=== PATIENT | male | born 1935 | race Caucasian/White ===

== ENCOUNTER 2019-04-03 10:39 | Emergency (ER) | payer MEDICARE, OTHER ==
[2019-04-03 11:31] LABS: BASOPHILS % (AUTO) 0.5 %; EOSINOPHILS # (AUTO) 0.2 10^3/uL (0.0-0.7); EOSINOPHILS % (AUTO) 2.9 %; LYMPHOCYTES # (AUTO) 1.7 10^3/uL (1.5-3.5); LYMPHOCYTES % (AUTO) 20.8 %; MEAN CORPUSCULAR HGB CONC 32.4 g/dL (32.0-36.0); MEAN CORPUSCULAR VOLUME 92.7 fL (80.0-94.0); MEAN PLATELET VOLUME 10.3 fL (7.4-11.4); MONOCYTES # (AUTO) 0.7 10^3/uL (0.0-1.0); MONOCYTES % (AUTO) 8.2 %; NEUTROPHILS # (AUTO) 5.4 10^3/uL (1.5-6.6); NEUTROPHILS % (AUTO) 67.2 %; PLT - PLATELET COUNT 184 10^3/uL (130-450); RED BLOOD COUNT 4.66 10^6/uL (4.70-6.10); RED CELL DISTRIBUTION WIDTH 12.8 % (12.0-15.0); WHITE BLOOD COUNT 8.1 x10^3/uL (4.8-10.8)
[2019-04-03 11:45] LABS: ALBUMIN 3.8 g/dL (3.2-5.5); ALBUMIN/GLOBULIN RATIO 1.3 (1.0-2.2); BILIRUBIN,TOTAL 2.1 mg/dL (0.2-1.0); CALCIUM 9.6 mg/dL (8.5-10.3); CREATININE 1.2 mg/dL (0.6-1.2); TOTAL PROTEIN 6.7 g/dL (6.7-8.2)
[2019-04-03] MEDS ORDERED: ALBUTEROL NEB 2.5 MG/3 ML INH STA (12:04)
--- NOTE | 2019-04-03 12:05 | XRAY Report ---
Reason: cough Procedure Date: 04/03/2019 Accession Number: [id number] / [id number] Procedure: XR - Chest 2 View X-Ray CPT Code: 56670 Final Report FULL RESULT: EXAM: CHEST RADIOGRAPHY EXAM DATE: 04/03/2019 11:36 AM. CLINICAL HISTORY: Cough, congestion, and weakness for 1 month. COMPARISON: 02/19/2016. TECHNIQUE: 2 views. FINDINGS: Lungs/Pleura: No focal opacities evident. No pleural effusion. No pneumothorax. Normal volumes. Mediastinum: The heart size is normal. Arterial calcifications indicate atherosclerosis. Other: Leads to the right chest wall pacemaker terminate in the right atrium and right ventricle. Moderate osteopenia is present. There appears to be an old healed fracture of the right inferior scapula. There is DISH of the thoracic spine. IMPRESSION: No acute findings. RADIA
--- NOTE | 2019-04-03 12:06 | ED Physician Documentation ---
PD HPI DYSPNEA - Stated complaint Stated Complaint: WEAKNESS/COLD - Chief complaint Chief Complaint: Resp - History obtained from History obtained from: Patient - History of Present Illness Timing - onset: Other (83-year-old gentleman whose had a minimally productive cough for a month. No shortness of breath or fevers. No sick contacts. He is on lisinopril but he has been on it for years. Chronic pedal edema unchanged. He was put on a Z-Krishna by his physician which was not helpful.) Review of Systems Constitutional: denies: Fever, Chills, Myalgias Cardiac: reports: Pedal edema (chronic). denies: Chest pain / pressure, Palpitations Respiratory: reports: Cough. denies: Dyspnea, Hemoptysis GI: denies: Abdominal Pain PD PAST MEDICAL HISTORY - Past Medical History Past Medical History: Yes Cardiovascular: Hypertension, High cholesterol, Arrhythmia Respiratory: Sleep apnea Endocrine/Autoimmune: None GI: GERD Musculoskeletal: Osteoarthritis Derm: None - Past Surgical History Ortho: Hip replacement Cardiovascular: Pacemaker - Present Medications Home Medications: Ambulatory Orders Medication Instructions Recorded Confirmed Albuterol Sulf [Ventolin Hfa 1 - 2 puffs INH Q4HR PRN #1 inhaler 04/03/19 Inhaler] guaiFENesin/CODEINE [Robitussin AC] 5 - 10 ml PO Q6H PRN #120 ml 04/03/19 predniSONE [Deltasone] 60 mg PO DAILY 5 Days #15 tablet 04/03/19 - Allergies Allergies/Adverse Reactions: Allergies Allergy/AdvReac Type Severity Reaction Status Date / Time Penicillins Allergy Anaphylaxis Verified 04/03/19 10:46 - Social History Does the pt smoke?: No Smoking Status: Former smoker Does the pt drink ETOH?: Yes ETOH Use: Beer Does the pt have substance abuse?: No - Immunizations Immunizations are current?: Yes PD ED PE NORMAL - Vitals Vital signs reviewed: Yes - General General: Alert and oriented X 3, No acute distress - HEENT HEENT: PERRL, Pharynx benign - Neck Neck: Supple, no meningeal sign, No bony TTP - Cardiac Cardiac: RRR, No murmur - Respiratory Respiratory: No respiratory distress, Other (Mild expiratory wheezes without focal findings) - Abdomen Abdomen: Non tender - Extremities Extremities: No calf tenderness / cord - Neuro Neuro: Alert and oriented X 3, Normal speech Results - Vitals Vitals: Vital Signs - 24 hr 04/03/19 04/03/19 04/03/19 10:46 11:08 12:45 Temperature 36.6 C 36.8 C Heart Rate 55 L 55 L 55 L Respiratory 14 18 14 Rate Blood Pressure 131/62 H 141/61 H O2 Saturation 93 98 Oxygen O2 Source Room air - Labs Labs: Laboratory Tests 04/03/19 04/03/19 04/03/19 11:20 11:20 11:20 WBC 8.1 RBC 4.66 L Hgb 14.0 Hct 43.2 MCV 92.7 MCH 30.0 MCHC 32.4 RDW 12.8 Plt Count 184 MPV 10.3 Neut # (Auto) 5.4 Lymph # (Auto) 1.7 [place] # (Auto) 0.7 Eos # (Auto) 0.2 Baso # (Auto) 0.0 Absolute Nucleated RBC 0.00 Nucleated RBC % 0.0 Sodium 138 Potassium 4.1 Chloride 103 Carbon Dioxide 29 Anion Gap 6.0 BUN 28 H Creatinine 1.2 Estimated GFR (MDRD) 58 L Glucose 109 H Lactic Acid 1.2 Calcium 9.6 Total Bilirubin 2.1 H AST 23 ALT 22 Alkaline Phosphatase 53 Total Protein 6.7 Albumin 3.8 Globulin 2.9 Albumin/Globulin Ratio 1.3 Lipase 43 - Rads (name of study) 2v chest Radiology: EMP read contemporaneously (Degenerative disease of the thoracic spine and other chronic changes without acute pulmonary findings.) PD MEDICAL DECISION MAKING - ED course ED course: 83-year-old gentleman with clinical bronchitis who has failed treatment with a Z-Krishna, chest x-ray is negative, feeling a little better after breathing treatment here. Departure - Departure Disposition: 01 Home, Self Care Clinical Impression: Viral bronchitis Condition: Good Record reviewed to determine appropriate education?: Yes Instructions: ED Bronchitis Asthmatic Prescriptions: Albuterol Sulf [Ventolin Hfa Inhaler] 1 - 2 puffs INH Q4HR PRN #1 inhaler PRN Reason: Shortness Of Air/Wheezing guaiFENesin/CODEINE [Robitussin AC] 5 - 10 ml PO Q6H PRN #120 ml PRN Reason: Cough predniSONE [Deltasone] 60 mg PO DAILY 5 Days #15 tablet Comments: Recheck with your doctor in 1 week if not better, return for new or worsening symptoms especially high fever or shortness of breath. Of note you have a mildly elevated blue bilirubin which is probably an incidental finding, but discussed this with Dr. Yajaira Tucker.
[2019-04-03 13:40] VITALS: BP 117/55
== END 2019-04-03 13:48 | disposition home or self-care (01) ==
LOC: ED 10:39
DX: J20.8 Acute bronchitis due to other specified organisms (principal); B97.89 Other viral agents as the cause of diseases classified elsewhere; R79.89 Other specified abnormal findings of blood chemistry; I10 Essential (primary) hypertension; M51.34 Other intervertebral disc degeneration, thoracic region; Z87.891 Personal history of nicotine dependence
CPT/HCPCS: 36415; 71046; 80053; 83605; 83690; 85025; 94640; 94664; 99284

== ENCOUNTER 2020-03-28 13:26 | Outpatient (CLI) | payer MEDICARE, OTHER ==
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
== END 2020-03-28 13:27 | disposition home or self-care (01) ==
LOC: DI 13:26
PROVIDERS: ATTEND Internal Medicine
DX: I70.211 Atherosclerosis of native arteries of extremities with intermittent claudication, right leg (principal)

== ENCOUNTER 2021-03-29 11:36 | Outpatient (CLI) | payer MEDICARE, OTHER ==
[2021-03-29 15:30] LABS: CALCIUM 9.5 mg/dL (8.5-10.3); CREATININE 1.5 mg/dL (0.6-1.2); POTASSIUM 4.6 mmol/L (3.5-5.0)
== END 2021-03-29 11:37 | disposition home or self-care (01) ==
LOC: LAB 11:36
PROVIDERS: ATTEND Internal Medicine Cardiovascular Disease
DX: I15.8 Other secondary hypertension (principal)
CPT/HCPCS: 36415; 80048

== ENCOUNTER 2021-04-03 13:32 | Outpatient (CLI) | payer MEDICARE, OTHER ==
[2021-04-03 13:54] LABS: CALCIUM 9.8 mg/dL (8.5-10.3); CREATININE 1.3 mg/dL (0.6-1.2); POTASSIUM 4.4 mmol/L (3.5-5.0)
== END 2021-04-03 13:33 | disposition home or self-care (01) ==
LOC: LAB 13:32
PROVIDERS: ATTEND Internal Medicine Cardiovascular Disease
DX: I44.2 Atrioventricular block, complete (principal); I10 Essential (primary) hypertension
CPT/HCPCS: 36415; 80048

== ENCOUNTER 2021-05-01 21:11 | Outpatient (CLI) | payer MEDICARE, OTHER ==
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
== END 2021-05-01 21:12 | disposition home or self-care (01) ==
LOC: DI 21:11
PROVIDERS: ATTEND Internal Medicine
DX: M79.662 Pain in left lower leg (principal)

== ENCOUNTER 2021-05-08 17:06 | Outpatient (CLI) | payer MEDICARE, OTHER | END 2021-05-08 17:07 | disposition critical access hospital (66) | LOC: EMS 17:06 | DX: R41.0 Disorientation, unspecified (principal); V58.5XXA Driver of pick-up truck or van injured in noncollision transport accident in traffic accident, initial encounter; Y92.413 State road as the place of occurrence of the external cause | CPT/HCPCS: A0425; A0429 ==

== ENCOUNTER 2021-05-08 17:23 | Emergency (ER) | payer MEDICARE, OTHER ==
[2021-05-08] MEDS ORDERED: iohexoL-300 100 ML VIAL ONE (17:39)
[2021-05-08 17:53] LABS: BASOPHILS % (AUTO) 0.7 %; EOSINOPHILS # (AUTO) 0.2 10^3/uL (0.0-0.7); HCT - HEMATOCRIT 41.9 % (42.0-52.0); HGB - HEMOGLOBIN 13.6 g/dL (14.0-18.0); LYMPHOCYTES # (AUTO) 1.2 10^3/uL (1.5-3.5); LYMPHOCYTES % (AUTO) 20.4 %; MEAN CORPUSCULAR HEMOGLOBIN 29.2 pg (27.0-31.0); MEAN CORPUSCULAR HGB CONC 32.5 g/dL (32.0-36.0); MEAN CORPUSCULAR VOLUME 90.1 fL (80.0-94.0); MONOCYTES # (AUTO) 0.4 10^3/uL (0.0-1.0); MONOCYTES % (AUTO) 7.7 %; NEUTROPHILS # (AUTO) 3.8 10^3/uL (1.5-6.6); NEUTROPHILS % (AUTO) 66.7 %; PLT - PLATELET COUNT 168 10^3/uL (130-450); RED BLOOD COUNT 4.65 10^6/uL (4.70-6.10); RED CELL DISTRIBUTION WIDTH 12.3 % (12.0-15.0); WHITE BLOOD COUNT 5.7 x10^3/uL (4.8-10.8)
[2021-05-08 18:09] LABS: ACETAMINOPHEN < 10 ug/mL (10-30); ALBUMIN 3.9 g/dL (3.2-5.5); ALBUMIN/GLOBULIN RATIO 1.3 (1.0-2.2); ALKALINE PHOSPHATASE 67 IU/L (42-121); ALT ALANINE AMINOTRANSFERASE 17 IU/L (10-60); AST ASPARTATE AMINOTRANSFERASE 25 IU/L (10-42); BILIRUBIN,TOTAL 1.5 mg/dL (0.2-1.0); BUN - BLOOD UREA NITROGEN 24 mg/dL (6-20); CALCIUM 9.5 mg/dL (8.5-10.3); CARBON DIOXIDE - CO2 26 mmol/L (21-32); CHLORIDE 106 mmol/L (101-111); CREATININE 1.5 mg/dL (0.6-1.2); ETOH - ETHANOL < 5.0 mg/dL; GFR - MDRD 44 (>89); GLUCOSE 120 mg/dL (70-100); LIPASE 34 U/L (22-51); POTASSIUM 4.1 mmol/L (3.5-5.0); SALICYLATE < 6.0 mg/dL; SODIUM 140 mmol/L (135-145); TOTAL PROTEIN 6.8 g/dL (6.7-8.2)
[2021-05-08] MEDS ORDERED: iohexoL-300 100 ML VIAL IVP ONE (18:23)
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
[2021-05-08 19:00] LABS: MUDS CUTOFF CONCENTRATIONS CUTOFF CONC BELOW:
[2021-05-08 19:02] LABS: BILIRUBIN,URINE NEGATIVE (NEGATIVE); GLUCOSE, URINE (UA) NEGATIVE (NEGATIVE); KETONES,URINE (UA) NEGATIVE (NEGATIVE); LEUKOCYTE ESTERASE, URINE NEGATIVE (NEGATIVE); NITRITE,URINE NEGATIVE (NEGATIVE); OCCULT BLOOD,URINE TRACE-INTA (NEGATIVE); PROTEIN,URINE NEGATIVE (NEGATIVE); UROBILINOGEN,URINE 0.2 (NORMAL) E.U./dL (NORMAL)
[2021-05-08 19:03] LABS: CLARITY,URINE CLEAR (CLEAR)
[2021-05-08 19:14] LABS: AMPHETAMINE SCREEN,URINE NEGATIVE (NEGATIVE); BARBITURATE SCREEN,UR NEGATIVE (NEGATIVE); BENZODIAZEPINES SCREEN, URINE NEGATIVE (NEGATIVE); COCAINE SCREEN URINE NEGATIVE (NEGATIVE); METHADONE SCREEN, URINE NEGATIVE (NEGATIVE); METHAMPHETAMINES SCREEN, URINE NEGATIVE (NEGATIVE); OPIATE SCREEN, URINE NEGATIVE (NEGATIVE); OXYCODONE SCREEN, URINE NEGATIVE (NEGATIVE); PROPOXYPHENE SCREEN, URINE NEGATIVE (NEGATIVE); THC CANNABINOID SCREEN, URINE NEGATIVE (NEGATIVE); TRICYCLIC ANTIDEPRESSANT,URINE NEGATIVE (NEGATIVE)
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
[2021-05-08 22:47] VITALS: BP 177/69
== END 2021-05-08 23:09 | disposition home or self-care (01) ==
LOC: ED 17:23
DX: S09.90XA Unspecified injury of head, initial encounter (principal); V89.2XXA Person injured in unspecified motor-vehicle accident, traffic, initial encounter; I10 Essential (primary) hypertension; Z95.0 Presence of cardiac pacemaker; Z87.891 Personal history of nicotine dependence
CPT/HCPCS: 36415; 70450; 71260; 72125; 74177; 80053; 80306; 80307; 81003; 83690; 84443; 84484; 85025; 93005; 99283; 99284; G0480; Q9967; 80320; 80329; 81001; 87086

== ENCOUNTER 2021-05-23 16:07 | Outpatient (CLI) | payer OTHER, MEDICARE ==
[2021-05-23] MEDS ORDERED: IOVERSOL 320 100 ML VIAL IVP ONE ×2 (16:45→18:54)
--- NOTE | 2021-05-24 08:26 | CT Report ---
PROCEDURE: HEAD W INDICATIONS: HEMANGIOMA OF OTHER SITES TECHNIQUE: 4.5 mm thick angled axial sections acquired from the foramen magnum to the vertex after th e administration of intravenous contrast. For radiation dose reduction, the following was used: aut omated exposure control, adjustment of mA and/or kV according to patient size. COMPARISON: May 08, 2021 FINDINGS: BRAIN PARENCHYMA: White matter hypoattenuation, most consistent with the sequela microvascular ischem ia. Interval resolution of the previously demonstrated punctate bifrontal, hyperdense foci. No acute cortical based (large territory) infarction, intracranial hemorrhage, mass or mass effect, or abnorma l fluid collection. No abnormal contrast enhancement. The density in the larger dural venous sinuses is grossly normal. VENTRICLES: Normal in size, shape, and position. BONES/SINUSES: The skull base and calvarium demonstrate no acute abnormality. The paranasal sinuses a nd mastoid air cells are well aerated. 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 IMPRESSION: 1.Interval resolution of the previous redemonstrated punctate bifrontal hemorrhages. Reviewed by: Sumeet Paez MD on 05/24/2021 8:25 AM PST Approved by: Sumeet Paez MD on 05/24/2021 8:25 AM PST Station ID: [id number]
== END 2021-05-23 16:08 | disposition home or self-care (01) ==
LOC: DI 16:07
PROVIDERS: ATTEND Internal Medicine
DX: D18.09 Hemangioma of other sites (principal)
CPT/HCPCS: 70460; Q9967

== ENCOUNTER 2021-06-05 13:09 | Outpatient (CLI) | payer MEDICARE, OTHER | END 2021-06-05 13:10 | disposition critical access hospital (66) | LOC: EMS 13:09 | DX: R41.82 Altered mental status, unspecified (principal) | CPT/HCPCS: A0425; A0429 ==

== ENCOUNTER 2021-06-05 13:22 | Emergency (ER) | payer MEDICARE, OTHER ==
[2021-06-05] MEDS ORDERED: NALOXONE 0.4 MG/ML VIAL IVP STA (13:27)
[2021-06-05 13:33] LABS: BASOPHILS % (AUTO) 0.5 %; EOSINOPHILS # (AUTO) 0.1 10^3/uL (0.0-0.7); EOSINOPHILS % (AUTO) 2.2 %; HCT - HEMATOCRIT 38.9 % (42.0-52.0); HGB - HEMOGLOBIN 12.5 g/dL (14.0-18.0); LYMPHOCYTES # (AUTO) 1.3 10^3/uL (1.5-3.5); LYMPHOCYTES % (AUTO) 20.2 %; MEAN CORPUSCULAR HEMOGLOBIN 28.7 pg (27.0-31.0); MEAN CORPUSCULAR HGB CONC 32.1 g/dL (32.0-36.0); MEAN CORPUSCULAR VOLUME 89.2 fL (80.0-94.0); MONOCYTES # (AUTO) 0.5 10^3/uL (0.0-1.0); MONOCYTES % (AUTO) 8.4 %; NEUTROPHILS # (AUTO) 4.3 10^3/uL (1.5-6.6); NEUTROPHILS % (AUTO) 68.5 %; PLT - PLATELET COUNT 166 10^3/uL (130-450); RED BLOOD COUNT 4.36 10^6/uL (4.70-6.10); RED CELL DISTRIBUTION WIDTH 12.4 % (12.0-15.0); WHITE BLOOD COUNT 6.3 x10^3/uL (4.8-10.8)
--- NOTE | 2021-06-05 13:33 | ED Physician Documentation ---
History of Present Illness - Stated complaint Stated Complaint: AMS - Chief complaint Chief Complaint: Neuro - History obtained from History obtained from: EMS - History of Present Illness Timing: Today Pain level max: 0 Pain level now: 0 - Additonal information Additional information: 86 year old male brought in by EMS for altered mental status. Per EMS the gave the patient a dose of metoprolol this morning she then found him to be less responsive. Called 911 this afternoon. No recent illness, injury. Nothing makes it better or worse. EMS states GCS was 4 upon arrival. Review of Systems Unable to obtain: Unresponsive PD PAST MEDICAL HISTORY - Past Medical History Past Medical History: Yes Cardiovascular: Hypertension, High cholesterol, Arrhythmia Respiratory: Sleep apnea Endocrine/Autoimmune: None GI: GERD Musculoskeletal: Osteoarthritis Derm: None - Past Surgical History Ortho: Hip replacement Cardiovascular: Pacemaker - Present Medications Home Medications: Ambulatory Orders Medication Instructions Recorded Confirmed Albuterol Sulf [Ventolin Hfa 1 - 2 puffs INH Q4HR PRN #1 inhaler 04/03/19 Inhaler] guaiFENesin/CODEINE [Robitussin AC] 5 - 10 ml PO Q6H PRN #120 ml 04/03/19 predniSONE [Deltasone] 60 mg PO DAILY 5 Days #15 tablet 04/03/19 - Allergies Allergies/Adverse Reactions: Allergies Allergy/AdvReac Type Severity Reaction Status Date / Time Penicillins Allergy Anaphylaxis Verified 06/05/21 13:29 - Social History Does the pt smoke?: No Smoking Status: Former smoker Does the pt drink ETOH?: Yes Does the pt have substance abuse?: No - Immunizations Immunizations are current?: Yes PD ED PE NORMAL - Vitals Vital signs reviewed: Yes - General General: No acute distress, Other (drowsy, arousable) - HEENT HEENT: Atraumatic, Moist mucous membranes, Pharynx benign, Other (Pinpoint pupils bilaterally) - Neck Neck: Supple, no meningeal sign - Cardiac Cardiac: RRR - Respiratory Respiratory: No respiratory distress, Clear bilaterally - Abdomen Abdomen: Soft, Non tender, Non distended - Derm Derm: Warm and dry - Neuro Neuro: Other (drowsy) Eye Opening: None Motor: Withdraws to Pain Verbal: Inappropriate GCS Score: 8 Results - Vitals Vitals: Vital Signs - 24 hr 06/05/21 06/05/21 06/05/21 13:29 13:34 15:16 Temperature 36.5 C 36.5 C 36.5 C Heart Rate 65 63 65 Respiratory 12 13 14 Rate Blood Pressure 165/74 H 162/82 H 138/80 H O2 Saturation 97 93 96 Oxygen O2 Source Room air - EKG (time done) 1322 Rate: Rate (enter#) (64) Rhythm: Paced - Labs Labs: Laboratory Tests 06/05/21 06/05/21 06/05/21 13:26 13:26 13:26 WBC 6.3 RBC 4.36 L Hgb 12.5 L Hct 38.9 L MCV 89.2 MCH 28.7 MCHC 32.1 RDW 12.4 Plt Count 166 MPV 11.0 Neut # (Auto) 4.3 Lymph # (Auto) 1.3 L [place] # (Auto) 0.5 Eos # (Auto) 0.1 Baso # (Auto) 0.0 Absolute Nucleated RBC 0.00 Nucleated RBC % 0.0 Sodium 136 Potassium 4.0 Chloride 102 Carbon Dioxide 26 Anion Gap 8.0 BUN 27 H Creatinine 1.3 H Estimated GFR (MDRD) 52 L Glucose 106 H Calcium 9.3 Total Bilirubin 1.7 H AST 22 ALT 22 Alkaline Phosphatase 77 Total Protein 6.3 L Albumin 3.5 Globulin 2.8 Albumin/Globulin Ratio 1.3 Lipase 35 TSH 1.23 Urine Color Urine Clarity Urine pH Ur Specific [place] Urine Protein Urine Glucose (UA) Urine Ketones Urine Occult Blood Urine Nitrite Urine Bilirubin Urine Urobilinogen Ur Leukocyte Esterase Ur Microscopic Review Urine Culture Comments Salicylates < 6.0 Urine Opiates Screen Ur Oxycodone Screen Urine Methadone Screen Ur Propoxyphene Screen Acetaminophen < 10 L Ur Barbiturates Screen Ur Tricyclics Screen Ur Phencyclidine Scrn Ur Amphetamine Screen U Methamphetamines Scrn U Benzodiazepines Scrn Urine Cocaine Screen U Cannabinoids Screen Ethyl Alcohol < 5.0 06/05/21 14:10 WBC RBC Hgb Hct MCV MCH MCHC RDW Plt Count MPV Neut # (Auto) Lymph # (Auto) [place] # (Auto) Eos # (Auto) Baso # (Auto) Absolute Nucleated RBC Nucleated RBC % Sodium Potassium Chloride Carbon Dioxide Anion Gap BUN Creatinine Estimated GFR (MDRD) Glucose Calcium Total Bilirubin AST ALT Alkaline Phosphatase Total Protein Albumin Globulin Albumin/Globulin Ratio Lipase TSH Urine Color YELLOW Urine Clarity CLEAR Urine pH 6.0 Ur Specific [place] 1.020 Urine Protein NEGATIVE Urine Glucose (UA) NEGATIVE Urine Ketones NEGATIVE Urine Occult Blood NEGATIVE Urine Nitrite NEGATIVE Urine Bilirubin NEGATIVE Urine Urobilinogen 0.2 (NORMAL) Ur Leukocyte Esterase NEGATIVE Ur Microscopic Review NOT INDICATED Urine Culture Comments NOT INDICATED Salicylates Urine Opiates Screen NEGATIVE Ur Oxycodone Screen NEGATIVE Urine Methadone Screen NEGATIVE Ur Propoxyphene Screen NEGATIVE Acetaminophen Ur Barbiturates Screen NEGATIVE Ur Tricyclics Screen NEGATIVE Ur Phencyclidine Scrn NEGATIVE Ur Amphetamine Screen NEGATIVE U Methamphetamines Scrn NEGATIVE U Benzodiazepines Scrn NEGATIVE Urine Cocaine Screen NEGATIVE U Cannabinoids Screen NEGATIVE Ethyl Alcohol - Rads (name of study) head ct Radiology: Final report received, EMP read contemporaneously, See rad report PD MEDICAL DECISION MAKING - ED course Complexity details: reviewed results, re-evaluated patient, considered differential, d/w patient, d/w family ED course: narcan given, GCS improved. still drowsy. Patient gradually returned to his normal baseline in the emergency department. Unclear etiology of his symptoms. When his arrived, she states that he has a history of obstructive sleep apnea. He does not use a CPAP. She states that he barely gets any sleep at all at night. Often will fall asleep while doing things. She reports excessive daytime sleepiness. Recommend that she follow-up with his doctor for a sleep study and CPAP. Possible that the patient is actually having parasomnia episodes and falling asleep directly into REM sleep causing the unresponsive episodes. No signs of stroke. Patient is well- appearing, nontoxic. Afebrile. No focal neurological deficits. Patient and family counseled regarding signs and symptoms for which I believe and urgent re- evaluation would be necessary. Patient with good understanding of and agreement to plan and is comfortable going home at this time This document was made in part using voice recognition software. While efforts are made to proofread this document, sound alike and grammatical errors may occur. IMPRESSION: No acute intracranial abnormality. Severe global cerebral volume loss and chronic microvascular ischemic changes similar to multiple recent prior studies. Departure - Departure Disposition: 01 Home, Self Care Clinical Impression: Decreased level of consciousness Condition: Good Instructions: ED Altered Loc Follow-Up: Yajaira Tucker MD [Primary Care Provider] - Within 1 week Comments: Follow-up with his doctor for further care. I think he should go back on a CPAP machine for his sleep apnea as this may help with these episodes that he is having. It is possible he is having a sleep disorder secondary to lack of REM sleep during his apneic periods. Discharge Date/Time: 06/05/21 15:23
[2021-06-05 13:48] LABS: ACETAMINOPHEN < 10 ug/mL (10-30); ALBUMIN 3.5 g/dL (3.2-5.5); ALBUMIN/GLOBULIN RATIO 1.3 (1.0-2.2); ALKALINE PHOSPHATASE 77 IU/L (42-121); ALT ALANINE AMINOTRANSFERASE 22 IU/L (10-60); AST ASPARTATE AMINOTRANSFERASE 22 IU/L (10-42); BILIRUBIN,TOTAL 1.7 mg/dL (0.2-1.0); CALCIUM 9.3 mg/dL (8.5-10.3); CARBON DIOXIDE - CO2 26 mmol/L (21-32); CHLORIDE 102 mmol/L (101-111); CREATININE 1.3 mg/dL (0.6-1.2); ETOH - ETHANOL < 5.0 mg/dL; GFR - MDRD 52 (>89); GLUCOSE 106 mg/dL (70-100); LIPASE 35 U/L (22-51); SALICYLATE < 6.0 mg/dL; SODIUM 136 mmol/L (135-145); TOTAL PROTEIN 6.3 g/dL (6.7-8.2)
[2021-06-05 13:57] LABS: BUN - BLOOD UREA NITROGEN 27 mg/dL (6-20)
--- NOTE | 2021-06-05 14:06 | CT Report ---
PROCEDURE: HEAD WO INDICATIONS: altered mental status TECHNIQUE: Noncontrast 4.5 mm thick angled axial sections acquired from the foramen magnum to the vertex. For r adiation dose reduction, the following was used: automated exposure control, adjustment of mA and/or kV according to patient size. COMPARISON: Multiple recent prior head CT examination FINDINGS: Image quality: Excellent. CSF spaces: Basal cisterns are patent. No extra-axial fluid collections. Ventricles are normal in size and shape. Brain: No midline shift. No intracranial masses or hemorrhage. Brock-white matter interface is norm al. Skull and face: Calvarium and visualized facial bones are intact, without suspicious lesions. Sinuses: Visualized sinuses and mastoids are clear. IMPRESSION: No acute intracranial abnormality. Severe global cerebral volume loss and chronic microv ascular ischemic changes similar to multiple recent prior studies. Reviewed by: Levon Contreras MD on 06/05/2021 2:04 PM PST Approved by: Levon Contreras MD on 06/05/2021 2:04 PM PST Station ID: [id number]
[2021-06-05 14:14] LABS: MUDS CUTOFF CONCENTRATIONS CUTOFF CONC BELOW:
[2021-06-05 14:17] LABS: BILIRUBIN,URINE NEGATIVE (NEGATIVE); GLUCOSE, URINE (UA) NEGATIVE (NEGATIVE); KETONES,URINE (UA) NEGATIVE (NEGATIVE); LEUKOCYTE ESTERASE, URINE NEGATIVE (NEGATIVE); NITRITE,URINE NEGATIVE (NEGATIVE); OCCULT BLOOD,URINE NEGATIVE (NEGATIVE); PROTEIN,URINE NEGATIVE (NEGATIVE); UROBILINOGEN,URINE 0.2 (NORMAL) E.U./dL (NORMAL)
[2021-06-05 14:20] LABS: CLARITY,URINE CLEAR (CLEAR)
[2021-06-05 14:28] LABS: AMPHETAMINE SCREEN,URINE NEGATIVE (NEGATIVE); BENZODIAZEPINES SCREEN, URINE NEGATIVE (NEGATIVE); COCAINE SCREEN URINE NEGATIVE (NEGATIVE); METHAMPHETAMINES SCREEN, URINE NEGATIVE (NEGATIVE); OPIATE SCREEN, URINE NEGATIVE (NEGATIVE); THC CANNABINOID SCREEN, URINE NEGATIVE (NEGATIVE); TRICYCLIC ANTIDEPRESSANT,URINE NEGATIVE (NEGATIVE)
[2021-06-05 14:29] LABS: BARBITURATE SCREEN,UR NEGATIVE (NEGATIVE); METHADONE SCREEN, URINE NEGATIVE (NEGATIVE); OXYCODONE SCREEN, URINE NEGATIVE (NEGATIVE); PROPOXYPHENE SCREEN, URINE NEGATIVE (NEGATIVE)
[2021-06-05 15:17] VITALS: BP 138/80
== END 2021-06-05 15:23 | disposition home or self-care (01) ==
LOC: ED 13:22
DX: Z87.891 Personal history of nicotine dependence (principal); I10 Essential (primary) hypertension; Z95.0 Presence of cardiac pacemaker; R40.0 Somnolence; G47.33 Obstructive sleep apnea (adult) (pediatric)
CPT/HCPCS: 36415; 70450; 80053; 80306; 80307; 81003; 83690; 84443; 85025; 93005; 96374; 99281; 99284; G0480; 80320; 80329; 81001; 87086

== ENCOUNTER 2021-06-14 19:07 | Outpatient (CLI) | payer MEDICARE, OTHER | END 2021-06-14 19:08 | disposition short-term general hospital (02) | LOC: EMS 19:07 | DX: M25.551 Pain in right hip (principal); M54.50 Low back pain, unspecified; W18.30XA Fall on same level, unspecified, initial encounter; Y92.009 Unspecified place in unspecified non-institutional (private) residence as the place of occurrence of the external cause | CPT/HCPCS: A0425; A0429 ==

== ENCOUNTER 2021-06-26 17:32 | Outpatient (CLI) | payer MEDICARE, OTHER | END 2021-06-26 17:33 | disposition EMS.NT | LOC: EMS 17:32 | DX: R53.83 Other fatigue (principal); R26.2 Difficulty in walking, not elsewhere classified ==

== ENCOUNTER 2021-07-10 12:58 | Outpatient (CLI) | payer MEDICARE, OTHER ==
[2021-07-10 14:25] VITALS: BP 158/73
--- NOTE | 2021-07-10 14:25 | SLEEP CARE CONSULTATION ---
Information from patient questionnaire entered by Kasey Tavera MA. I have reviewed and concur with the information entered by Kasey Tavera MA. This document represents the service I personally performed and the decisions made by me, Nora Etienne ARNP. History of Present Illness Service Date and Time: 07/10/2021 1258 Reason for Visit: New patient (LAST SEEN 2014, NOT ON CPAP, ) Chief Complaint: reports: Unrefreshed sleep, Snoring, Excessive daytime sle epiness, Observed pauses in breathing, Fatigue, Other (altered level of consciousness) Date of Onset: 10 years; getting worse Usual bedtime: 9 pm Time it takes to fall asleep: right away Snores at night: Yes Observed to quit breathing while asleep: Yes Sleeps alone due to snoring: No Number of times waking at night: 2-3 times Reasons for waking at night: reports: Bathroom. denies: Choking, Gasping for air Toss, Turn, or Twitch while sleeping: No Recalls having dreams: Yes Usually gets out of bed at: 1000 am Feels refreshed in the morning: No Morning headache: No Sleepy or fatigued during the day: Yes Ever fallen asleep while driving: No (does not drive) Takes day naps: Yes (daily, states "all day sleeping") Dreams during day naps: No Prior sleep studies: Yes Year and Where: November 2014, [facility] Type of Sleep Study: Polysomnography Additional HPI information: I had the pleasure of seeing CLAUDIA WILLIAMSON today regarding the possibility of him having a sleep disorder. He is accompanied by his who helps with his history. His current complaints are excessive daytime sleepiness, fatigue, observed pauses in breathing, snoring and unrefreshed sleep. He also complains of altered level of consciousness. His thought he was having a stroke and they went to the hospital. He was not having a stroke. He was seen in ED and was told that he may have EYAL and is here to check this. He had a sleep study in 2014 that was negative at that time but he did not sleep supine for that study. He sleeps all the time, according to his . She has trouble waking him up if he has not had enough sleep. She states he makes a light "hiccup" type sound in his sleep between breaths and has witness pauses in his breathing. She states he snores as well. - Parasomnia Symptoms Ever been unable to move upon waking from sleep: No Walks in sleep: No Talks in sleep: Yes (occasionally) Ever acted out dreams in sleep: Yes Ever felt weak in the knees when startled or emotional: No Bothered by creepy, crawly, restless sensations in legs: No Problems with memory or concentration: Yes (both) Subjective Initial [place] Sleepiness Scale score: 19 (07/02) Past Medical History Past Medical History: reports: Hypertension (until he had femoral bypass done he was treated but then he was hypotensive on meds), Arthritis, Other (pace maker in 10 + years ago; Femoral artery bypass and stenting 2020; right Knee pain) Social History The patient's occupation is a RETIRED. Patient is and lives in [place]. Have you smoked in the past 12 months: No Cigarettes per day (20/pack): 40 Years of smokin Quit date: 35 Smoking Pack Years: 80.0 Alcohol use: Yes Alcohol amount and frequency: 1 x daily Caffeine use: Yes Caffeine amount and frequency: 1 x daily Family History Family history of sleep disordered breathing: No Allergies and Home Medications Known drug allergies: Yes (PNC) Home medication list reviewed: Yes Allergy and home medication list: Allergies Penicillins Allergy (Verified 06/05/21 13:29) Anaphylaxis Medications: Furosemide Potassium Chloride ER Tylenol ES [place] Dream Arthritis Neosporin ointment Tamsulosin Cholecalciferol (Vit D) Omeprazole Atorvastatin Calcium Aspirin 81 mg [place]-3 Fish oil Review of Systems Review of systems same as previous: Yes Weight loss over past 5 years: 5 lbs Cardiovascular: reports: leg or foot swelling Respiratory: reports: shortness of breath, chronic cough Urinary: reports: frequency Neurological: reports: gait or balance problems, fainting or unconsciousness, other (altered level of consciousness) Ear/Nose/Throat: reports: hoarseness, other (hiccup type noise in sleep) Musculoskeletal: reports: joint pain, mobility problems Immunologic: reports: sneezing Physical Exam Vital signs obtained and entered by: PAPO SIMENTAL Blood Pressure: 158/73 (RIGHT, PULSE 69, RESP 18 ) Cuff size: wrist Heart Rate: 68 O2 Saturation: 96 Height: 5 ft 8 in Weight: 195 lb Body Mass Index: 29.6 BMI Classification: Overweight Mouth and throat: narrow oropharynx Soft palate: long Hard palate: normal Uvula: long Uvula visualization: 25% Mallampati Class III Tongue: normal in size Tonsils: small Neck: normal w/o lymphadenopathy or thyromegaly Heart: regular rate and rhythm Lungs: clear bilaterally Impression and Plan 1. Suspected Obstructive Sleep Apnea-Hypopnea Syndrome, as suggested by a history of loud and irregular snoring, observed cessation of breath while asle ep, gasping or choking in sleep, unrefreshed sleep, cognitive impairment, and excessive daytime sleepiness. Narrow oropharynx and obesity are common predisposing factors for obstructive sleep apnea-hypopnea syndrome. I recommend proceeding to polysomnography to confirm the diagnosis and to assess severity. If the patient has significant sleep disordered breathing, a manual CPAP titration study will also be performed to find the optimal treatment pressure. I informed the patient of what the sleep studies involve and after some discussion, obtained agreement to proceed. The pathophysiology of obstructive sleep apnea-hypopnea syndrome was discussed with the patient and health risks of cardiovascular and cerebrovascular disease if not treated. 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 Patient agreed to plan. * Schedule polysomnography +- manual CPAP titration study and return in 1-2 wee ks after the study to discuss result and initiate therapy. * Avoid long distance driving or driving when feeling sleepy. * Avoid alcohol, sedative and muscle relaxant around bedtime. * Attempt to lose weight. * Review instructions provided by trained office staff on how to prepare for the sleep study. * Return for follow-up after sleep study completed. Counseling Topics: Weight loss health impact Visit Type: In Office Other Participants: Spouse/Significant Other Time Spent with Patient (minutes): 37 Provider Statement: I spent 100% of the Face to Face Visit with the patient with greater than 50% spent counseling the patient and coordination of care.
== END 2021-07-10 12:59 | disposition home or self-care (01) ==
LOC: SC 12:58
PROVIDERS: ATTEND Nurse Practitioner Family
DX: G47.10 Hypersomnia, unspecified (principal); R53.83 Other fatigue; R06.83 Snoring; G47.8 Other sleep disorders; R06.81 Apnea, not elsewhere classified; I51.9 Heart disease, unspecified; E66.3 Overweight; Z68.29 Body mass index [BMI] 29.0-29.9, adult; Z87.891 Personal history of nicotine dependence
CPT/HCPCS: 99203; G0463; 99212

== ENCOUNTER 2021-07-14 19:30 | Outpatient (CLI) | payer MEDICARE, OTHER | END 2021-07-14 19:31 | disposition home or self-care (01) | LOC: SC 19:30 | PROVIDERS: ATTEND Nurse Practitioner Family | DX: G47.33 Obstructive sleep apnea (adult) (pediatric) (principal) | CPT/HCPCS: 95810 ==

== ENCOUNTER 2021-07-23 13:48 | Outpatient (CLI) | payer MEDICARE, OTHER ==
[2021-07-23 15:15] VITALS: BP 133/79
--- NOTE | 2021-07-23 15:15 | SLEEP CARE CONSULTATION ---
Information from patient questionnaire entered by Kasey Tavera MA. I have reviewed and concur with the information entered by Kasey Tavera MA. This document represents the service I personally performed and the decisions made by , Nora Etienne ARNP. History of Present Illness Service Date and Time: 07/23/2021 1348 Accompanied by: Spouse Initial [place] Sleepiness Scale score: 19 (07/02) Current [place] Sleepiness Scale score: 13 (08/02) Additional HPI information: CLAUDIA WILLIAMSON returns with spouse for follow up and results of the recently performed polysomnography. I explained the pathophysiology behind obstructive sleep apnea. We then spent quite a bit of time discussing different treatment options. For mild obstructive sleep apnea, surgery and oral appliance are alternatives to nasal CPAP therapy but in moderate or severe cases, nasal CPAP is the most effective and reliable treatment. Because apnea is primarily in supine position, then positional management therapy could be effective. Methods discussed such as positioning with pillows to prevent supine sleep. I reviewed the impact of weight changes on sleep apnea and strongly recommended losing weight. After some discussion, the patient opted to go with the nasal CPAP therapy. Nasal autoCPAP set at 5-20 cmH20 will be ordered with rationale explained. A manual titration study will be ordered if unable to find optimal pressure with office adjustments. I explained how CPAP machine works and what to expect when using the machine. Using CPAP every night in order to get used to it was emphasized. Patient advised to put CPAP mask on before getting into bed so as not to fall asleep without CPAP. To assist acclimation to CPAP use, it could also be used for a short time during day while reading or watching TV. The patient was instructed to call the CPAP supplier to discuss any mechanical problem that may occur. If the mask given is uncomfortable or is difficult to keep on through the night even with adjustment, contact the CPAP supplier as many will replace with another mask style if notified before 30 days. If snoring or perceives is not getting enough air or too much air from the machine, notify this office. AASM patient education PAP tips reviewed and given to patient. Patient does not drink alcohol. Patient does not drive. Sleep Study - Results Type of Sleep Study: Polysomnography (F/U POLY, 07/14/21 [facility],) Prior sleep studies: Yes Year and Where: November 2014, [facility] Polysomnography/Home Sleep Study results: IMPRESSION: The quality of the study is good. The patient had poor sleep efficiency due to sleep onset insomnia and prolonged awakenings during the night. The sleep architecture was abnormal for sleep fragmentation and lack of slow wave sleep (N3). Respiratory monitoring showed very severe obstructive sleep apnea-hypopnea (AHI = 72.3) associated with frequent arousals, oxyhemoglobin desaturation and moderate hypoxia (rui oxygen saturation of 62%). The patient only slept supine during this study (supine AHI = 73.3; non-supine = 0.00). Snore was light to moderate in intensity. There was no significant periodic leg movement of sleep. Cardiac rhythm was normal sinus rhythm without significant arrhythmia. No abnormal behavior (parasomnia) observed during the night. Allergies and Home Medications Known drug allergies: Yes (PNC, ) Drug allergies reviewed: Yes Home medication list reviewed: Yes (no changes) Allergy and home medication list: Allergies Penicillins Allergy (Verified 06/05/21 13:29) Anaphylaxis Review of Systems Review of systems same as previous: No (steroid shot in right knee, doing PT) Physical Exam Vital signs obtained and entered by: PAPO SIMENTAL Blood Pressure: 133/79 (LEFT, ) Heart Rate: 62 O2 Saturation: 96 (PAPER) Height: 5 ft 8 in Weight: 195 lb Body Mass Index: 29.6 BMI Classification: Overweight Impression and Plan 1. Obstructive Sleep Apnea-Hypopnea Syndrome, very severe, with lowest oxygen saturation of 62%. Obviously this is the cause of the patients symptoms of unrefreshed sleep, and excessive daytime sleepiness. Positive pressure therapy could benefit cardiac disease (pacemaker). As mentioned above, the patient will be started on nasal autoCPAP therapy with pressure set at 5-20 cmH2O. A manual titration study will be completed if unable to find optimal treatment pressure with office adjustments. Compliance guidelines also reviewed. A copy of compliance guidelines will be given for reference at check out. 2. Hypoxemia, moderate, with an rui oxygen saturation of 62% with 60.1 minutes spent under 90%. His baseline oxygen saturation was normal with an average of 91%. * Nasal auto CPAP therapy, pressure at 5-20 cm H2O. * Attempt to lose weight. * Avoid alcohol consumption near bedtime. * The patient is again cautioned about driving until sleepiness completely resolves. * Return one month after CPAP obtained. I will assess response to therapy and compliance at that time. Counseling Topics: Weight loss health impact Visit Type: In Office Other Participants: Spouse/Significant Other Time Spent with Patient (minutes): 29 Provider Statement: I spent 100% of the Face to Face Visit with the patient with greater than 50% spent counseling the patient and coordination of care.
== END 2021-07-23 13:49 | disposition home or self-care (01) ==
LOC: SC 13:48
PROVIDERS: ATTEND Nurse Practitioner Family
DX: G47.33 Obstructive sleep apnea (adult) (pediatric) (principal); R09.02 Hypoxemia
CPT/HCPCS: 99213; G0463; 99212

== ENCOUNTER 2021-08-30 08:00 | Outpatient (CLI) | payer MEDICARE, OTHER ==
--- NOTE | 2021-08-30 15:42 | XRAY Report ---
PROCEDURE: Knee 3 View RT INDICATIONS: PAIN IN RIGHT KNEE TECHNIQUE: 3 views of the right knee(s) were acquired. COMPARISON: None. FINDINGS: Bones: No fractures or dislocations. No suspicious bony lesions. Small corticated ossification supe rior to the patella suggests remote injury to the suprapatellar tendon. Patella is in normal location . There is surface irregularity of the patella suggesting chondromalacia patella. There is surface ir regularity of the medial femoral condyle suggesting chondromalacia. There is mild medial compartment joint space loss. Soft tissues: No joint effusion. No suspicious soft tissue calcifications. 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 Comment: Knee MRI may be helpful. Reviewed by: Boston Turner MD on 08/30/2021 3:40 PM PDT Approved by: Boston Turner MD on 08/30/2021 3:40 PM PDT Station ID: [id number]
== END 2021-08-30 23:59 | disposition home or self-care (01) ==
LOC: DI.N 08:00
PROVIDERS: ATTEND Nurse Practitioner Family
DX: M17.11 Unilateral primary osteoarthritis, right knee (principal); M94.261 Chondromalacia, right knee

== ENCOUNTER 2021-09-02 12:19 | Outpatient (CLI) | payer MEDICARE, OTHER | END 2021-09-02 12:20 | disposition left against medical advice (07) | LOC: EMS 12:19 | DX: R53.1 Weakness (principal); R55 Syncope and collapse ==

== ENCOUNTER 2021-09-24 13:59 | Outpatient (CLI) | payer MEDICARE, OTHER ==
[2021-09-24 14:40] VITALS: BP 132/78
--- NOTE | 2021-09-24 14:40 | SLEEP CARE CONSULTATION ---
Information from patient questionnaire entered by Kasey Teixeira MA. I have reviewed and concur with the information entered by Kasey Teixeira MA. This document represents the service I personally performed and the decisions made by , Nora Etienne ARNP. History of Present Illness Service Date and Time: 09/24/2021 1359 Previous diagnosis: Very Severe, Obstructive Sleep Apnea-Hypopnea Syndrome AHI: 72.3 (in 2021) Reason for follow up: first compliance ( 08/16/2021, RESMED, PRESSURE CHANGE,) Accompanied by: Spouse Equipment type: CPAP Equipment obtained from: Other ([facility]; got initial supplies) Mask style: Full face Mask brand: [id number] Siesta Backup mask available: Yes (other mask) Last cushion change: more than a month Prior sleep studies: Yes Year and Where: November 2014[facility] Type of Sleep Study: Polysomnography (F/U POLY, 07/14/21 [facility],) HPI additional information: CLAUDIA WILLIAMSON was diagnosed to have very severe, AHI 72.3, obstructive sleep apnea-hypopnea syndrome and returned today for CPAP therapy first compliance follow-up. Sleep Study - Results Type of Sleep Study: Polysomnography (F/U POLY, 07/14/21 [facility],) Prior sleep studies: Yes Year and Where: November 2014, [facility] CPAP Compliance Data - Data Reviewed with Patient Average duration of nightly device use: 9 HOURS 34 MINUTES Compliance rate %: 100 Current pressure setting (cmH2O): 5-10 Average residual AHI: 17.3 Central apnea: 4.3 Obstructive apnea: 5.9 Hypopnea: .08 Average large leak: 9.6 Subjective Patient concerns: reports: air blowing in eyes, mask leak noise, other (puffy eyes in morning). denies: aerophagia, mask discomfort, condensation in mask/hose, nasal congestion, dry mouth, nose, throat, epistaxis Observed to snore while using device: No Current pressure setting perceived as: comfortable On therapy, patient: reports: sleeping better, awakening more refreshed, being more awake and alert during the day, more rested overall, other ( says he is more alert and remembering things more) Initial [place] Sleepiness Scale score: 19 (07/02) Current [place] Sleepiness Scale score: 7 Allergies and Home Medications Known drug allergies: Yes ([facility], ) Drug allergies reviewed: Yes Home medication list reviewed: Yes (CARVEDILOL 25MG OD, (1/2 TABLET X 2 OD)) Allergy and home medication list: Allergies Penicillins Allergy (Verified 06/05/21 13:29) Anaphylaxis Review of Systems Review of systems same as previous: Yes (no changes) Physical Exam Vital signs obtained and entered by: Tom TEIXEIRA CMA AACARISSA Blood Pressure: 132/78 (RESP 22, PULSE 84, RIGHT, ) Cuff size: wrist Heart Rate: 85 O2 Saturation: 93 Height: 5 ft 8 in Weight: 190 lb (CLOTHES) Body Mass Index: 28.8 BMI Classification: Overweight Impression and Plan 1. Obstructive Sleep Apnea-Hypopnea Syndrome, very severe, with excellent treatment compliance and fair apnea control with elevated residual AHI. On CPAP therapy, the patient has better sleep quality and is more rested overall. His tells me he is more awake and alert during the day, sleeping less. He still will take a nap during the day. He gets some leaking around the mask and so his will tighten his headgear. He has some red grady on his nose and his eyes appear puffy in the mornings. I advised them to not over tighten his mask and try to get a mask barrier, Pad A Cheek pamphlet give to ) to reduce mask lines and increase comfort. They voiced understanding. The patients pressure will be changed to autoCPAP 7-11 cmH20 for elevation of residual AHI. Patient advised to contact me if pressure change is uncomfortable so that it can be adjusted. Goals for apnea control discussed. I would like to get a titration study but /patient does not want to drive to [place]. Once we get our titration machines back I will have him do a titration study. Patient is hard of hearing and his helps with conversation. Patient's apnea severity and rationale for treatment to reduce apnea, improve sleep quality and reduce cardiovascular and cerebrovascular events was reviewed. I also reviewed the benefit of consistent device use of CPAP for cardiac disease. * Change auto CPAP pressure to 7-11 cmH2O * Notify me if snoring with mask or feeling that the pressure is too much or too little * Attempt to lose weight * Call this office if any problems using CPAP * Return for follow up in 1-2 months, or sooner if concerns arise Counseling Topics: Spare mask, Weight loss health impact Visit Type: In Office Other Participants: Spouse/Significant Other Time Spent with Patient (minutes): 25 Provider Statement: I spent 100% of the Face to Face Visit with the patient with greater than 50% spent counseling the patient and coordination of care.
== END 2021-09-24 14:00 | disposition home or self-care (01) ==
LOC: SC 13:59
PROVIDERS: ATTEND Nurse Practitioner Family
DX: G47.33 Obstructive sleep apnea (adult) (pediatric) (principal); E66.3 Overweight; Z68.28 Body mass index [BMI] 28.0-28.9, adult
CPT/HCPCS: 99213; G0463; 99212

== ENCOUNTER 2021-11-05 15:53 | Outpatient (CLI) | payer MEDICARE, OTHER | END 2021-11-05 15:54 | disposition critical access hospital (66) | LOC: EMS 15:53 | DX: R55 Syncope and collapse (principal); R41.82 Altered mental status, unspecified | CPT/HCPCS: A0425; A0427 ==

== ENCOUNTER 2021-11-05 16:12 | Emergency (ER) | payer MEDICARE, OTHER ==
--- OUTSIDE RECORDS SUMMARY | 2021-11-05 16:28 | EXTERNAL MEDICAL SUMMARY RPT | Continuity of Care Document ---
:1935 Author Organization [facility] Address [address] [place] [address] Phone Allergies No information. Encounters No information. Functional Status No information. Immunizations No information. Medications date description facility +0000 naproxen sodium All +0000 naproxen sodium All Problems No information. Procedures date description facility +0000 XR KNEE 3 VIEW All Results/Labs No information. Social History No information. Vital Signs date measurement value units +0000 BMI BMI 29.54 kg/m2 +0000 BP_diastolic BP_diastolic 73 mm[H g] +0000 BP_systolic BP_systolic 145 mm[Hg] +0000 heart_rate heart_rate 68 /min +0000 height_metric height_metric 173.35 cm +0000 height_standard height_standard 68.25 in +0000 respiration_rate respiration_rate 18 /min +0000 temperature_metric temperature_metric 36.72 C +0000 temperature_standard temperature_standard 9 8.1 F +0000 weight_metric weight_metric 88.45 kg +0000 weight_standard weight_standard 195 lb
[2021-11-05 16:34] LABS: BASOPHILS % (AUTO) 0.2 %; HCT - HEMATOCRIT 38.2 % (42.0-52.0); HGB - HEMOGLOBIN 12.7 g/dL (14.0-18.0); LYMPHOCYTES # (AUTO) 1.4 10^3/uL (1.5-3.5); LYMPHOCYTES % (AUTO) 14.2 %; MEAN CORPUSCULAR HEMOGLOBIN 29.4 pg (27.0-31.0); MEAN CORPUSCULAR HGB CONC 33.2 g/dL (32.0-36.0); MEAN CORPUSCULAR VOLUME 88.4 fL (80.0-94.0); MEAN PLATELET VOLUME 10.8 fL (7.4-11.4); MONOCYTES # (AUTO) 0.9 10^3/uL (0.0-1.0); MONOCYTES % (AUTO) 8.9 %; NEUTROPHILS # (AUTO) 7.6 10^3/uL (1.5-6.6); NEUTROPHILS % (AUTO) 75.7 %; PLT - PLATELET COUNT 160 10^3/uL (130-450); RED BLOOD COUNT 4.32 10^6/uL (4.70-6.10); RED CELL DISTRIBUTION WIDTH 12.9 % (12.0-15.0); WHITE BLOOD COUNT 10.1 x10^3/uL (4.8-10.8)
--- NOTE | 2021-11-05 16:39 | ED Physician Documentation ---
History of Present Illness - Stated complaint Stated Complaint: SYNCOPAL EPISODE - Chief complaint Chief Complaint: Neuro - Additonal information Additional information: 86-year-old male was brought to the emergency department for evaluation of a possible syncopal episode. This patient has a history of congestive heart failure as well as a pacer in place. He also has chronic right knee pain. He was at his orthopedic office yesterday and received steroid injection into the right knee. He was seemingly feeling better and decided to go weed his front yard. This is the hottest day of the year thus far. His heard him outside yelling for help and when she found him he was on his back asking for help. EMS was summoned. They felt that he was mildly confused oriented to person only but had no obvious focal deficits. The patient is aware of where he is at and his name right now but does seem somewhat amnesic to the events of yesterday. He denies any chest pain or shortness of air. He is not anticoagulated. Review of Systems Unable to obtain: Confused PD PAST MEDICAL HISTORY - Past Medical History Cardiovascular: Hypertension, High cholesterol, Arrhythmia Respiratory: Sleep apnea Endocrine/Autoimmune: None GI: GERD Musculoskeletal: Osteoarthritis Derm: None - Past Surgical History Ortho: Hip replacement Cardiovascular: Pacemaker - Present Medications Home Medications: Ambulatory Orders Medication Instructions Recorded Confirmed Acetaminophen [Tylenol Extra 500 mg PO PRN PRN 11/05/21 11/05/21 Strength] Aspirin [Aspirin EC] 81 mg PO DAILY 11/05/21 11/05/21 Atorvastatin Calcium [Lipitor] 80 mg PO DAILY 11/05/21 11/05/21 Cholecalciferol [Vitamin D3] 25 mcg PO DAILY 11/05/21 11/05/21 Furosemide [Lasix] 20 mg PO DAILY 11/05/21 11/05/21 Multivit-Min/Folic/Vit K/Lycop 1 each PO DAILY 11/05/21 11/05/21 [One Daily Men's 50 Plus D3 Tab] [place]-3 Fatty Acids/Fish Oil 1 each PO DAILY 11/05/21 11/05/21 [[place]-3 Fish Oil 1,000 mg Sfgl] Omeprazole Magnesium 20 mg PO DAILY 11/05/21 11/05/21 Potassium Chloride 20 meq PO DAILY 11/05/21 11/05/21 Silver Sulfadiazine Cream 1 applic TOP DAILY 11/05/21 11/05/21 [Silvadene Cream] Tamsulosin HCl [Flomax] 0.4 mg PO DAILY 11/05/21 11/05/21 - Allergies Allergies/Adverse Reactions: Allergies Allergy/AdvReac Type Severity Reaction Status Date / Time Penicillins Allergy Anaphylaxis Verified 11/05/21 16:23 - Social History Does the pt smoke?: No Smoking Status: Former smoker Does the pt drink ETOH?: Yes Does the pt have substance abuse?: No - Immunizations Immunizations are current?: Yes PD ED PE EXPANDED - General General: Alert, No acute distress - HEENT HEENT: Atraumatic, PERRL, EOMI - Neck Neck: Supple w/out meningeal sx - Cardiac Cardiac: Regular Rate, Other (Paced ECG rhythm) - Respiratory Respiratory: Clear to ausultation eben. No: Distress, Labored - Abdomen Abdomen: Normal Bowel sounds. No: Tender to palpation - Back Back: Normal exam - Extremities Extremities: Other (Chronic bilateral lower extremity edema right greater than left at baseline. History of right fem pop bypass. 1+ DP pulse bilaterally) - Neuro Neuro: Alert and Oriented X 3, CNII-XII intact - GCS Eye Opening: Spontaneous Motor: Obeys Commands Verbal: Confused Total: 14 Results - Vitals Vitals: Vital Signs - 24 hr 11/05/21 11/05/21 11/05/21 16:16 16:31 16:35 Temperature 36.9 C Heart Rate 64 67 Heart Rate [ Sitting] Heart Rate [ Standing] Heart Rate [ Supine] Respiratory 10 L 19 Rate Blood Pressure 185/74 H 187/74 H Blood Pressure [Sitting] Blood Pressure [Standing] Blood Pressure [Supine] O2 Saturation 90 L 98 94 11/05/21 11/05/21 11/05/21 17:26 17:30 18:00 Temperature Heart Rate 55 L 55 L Heart Rate [ 58 L Sitting] Heart Rate [ 56 L Standing] Heart Rate [ 55 L Supine] Respiratory 11 L 17 Rate Blood Pressure 184/65 H 173/63 H Blood Pressure 181/63 H [Sitting] Blood Pressure 179/70 H [Standing] Blood Pressure 178/66 H [Supine] O2 Saturation 95 97 11/05/21 11/05/21 11/05/21 18:10 18:36 18:49 Temperature Heart Rate 65 Heart Rate [ Sitting] Heart Rate [ Standing] Heart Rate [ Supine] Respiratory 20 Rate Blood Pressure 176/62 H 189/63 H 185/63 H Blood Pressure [Sitting] Blood Pressure [Standing] Blood Pressure [Supine] O2 Saturation 96 11/05/21 11/05/21 11/05/21 19:00 19:21 19:30 Temperature Heart Rate 61 57 L 55 L Heart Rate [ Sitting] Heart Rate [ Standing] Heart Rate [ Supine] Respiratory 19 11 L Rate Blood Pressure 181/67 H 186/64 H 178/66 H Blood Pressure [Sitting] Blood Pressure [Standing] Blood Pressure [Supine] O2 Saturation 93 93 11/05/21 11/05/21 11/05/21 19:55 20:00 20:05 Temperature Heart Rate 55 L 55 L 55 L Heart Rate [ Sitting] Heart Rate [ Standing] Heart Rate [ Supine] Respiratory 16 15 Rate Blood Pressure 176/64 H 173/64 H 174/63 H Blood Pressure [Sitting] Blood Pressure [Standing] Blood Pressure [Supine] O2 Saturation 94 96 11/05/21 11/05/21 11/05/21 20:10 20:20 20:25 Temperature Heart Rate 56 L 59 L 57 L Heart Rate [ Sitting] Heart Rate [ Standing] Heart Rate [ Supine] Respiratory 17 19 Rate Blood Pressure 175/57 H 157/64 H 158/55 H Blood Pressure [Sitting] Blood Pressure [Standing] Blood Pressure [Supine] O2 Saturation 96 95 11/05/21 11/05/21 11/05/21 20:30 20:35 20:40 Temperature Heart Rate 62 57 L 57 L Heart Rate [ Sitting] Heart Rate [ Standing] Heart Rate [ Supine] Respiratory 15 19 15 Rate Blood Pressure 150/49 H 154/54 H 141/51 H Blood Pressure [Sitting] Blood Pressure [Standing] Blood Pressure [Supine] O2 Saturation 93 94 94 11/05/21 11/05/21 11/05/21 21:00 21:05 21:10 Temperature Heart Rate 56 L 57 L 56 L Heart Rate [ Sitting] Heart Rate [ Standing] Heart Rate [ Supine] Respiratory 13 18 13 Rate Blood Pressure 128/53 L 127/47 L 130/49 L Blood Pressure [Sitting] Blood Pressure [Standing] Blood Pressure [Supine] O2 Saturation 92 92 91 L 11/05/21 11/05/21 11/05/21 21:15 21:20 21:25 Temperature Heart Rate 56 L 55 L 56 L Heart Rate [ Sitting] Heart Rate [ Standing] Heart Rate [ Supine] Respiratory 25 H 14 20 Rate Blood Pressure 130/49 L 126/49 L 126/49 L Blood Pressure [Sitting] Blood Pressure [Standing] Blood Pressure [Supine] O2 Saturation 92 91 L 90 L 11/05/21 11/05/21 11/05/21 21:30 21:45 21:57 Temperature Heart Rate 55 L 55 L 55 L Heart Rate [ Sitting] Heart Rate [ Standing] Heart Rate [ Supine] Respiratory 14 18 14 Rate Blood Pressure 129/49 L 131/56 H 142/52 H Blood Pressure [Sitting] Blood Pressure [Standing] Blood Pressure [Supine] O2 Saturation 94 93 90 L Oxygen O2 Source Nasal cannula - EKG (time done) 1619 Rate: Rate (enter#) (56) Rhythm: Paced Computer interpretation: Agree with computer (paced ECG rythm; no other interpretation ) - Labs Labs: Laboratory Tests 11/05/21 11/05/21 11/05/21 16:28 16:28 16:28 WBC 10.1 RBC 4.32 L Hgb 12.7 L Hct 38.2 L MCV 88.4 MCH 29.4 MCHC 33.2 RDW 12.9 Plt Count 160 MPV 10.8 Neut # (Auto) 7.6 H Lymph # (Auto) 1.4 L Emmet # (Auto) 0.9 Eos # (Auto) 0.0 Baso # (Auto) 0.0 Absolute Nucleated RBC 0.00 Nucleated RBC % 0.0 PT INR Sodium 139 Potassium 4.3 Chloride 105 Carbon Dioxide 24 Anion Gap 10.0 BUN 32 H Creatinine 1.0 Estimated GFR (MDRD) 71 L Glucose 107 H Calcium 9.6 Total Bilirubin 1.7 H AST 23 ALT 19 Alkaline Phosphatase 66 Troponin I High Sens 11.9 B-Natriuretic Peptide Total Protein 6.8 Albumin 3.9 Globulin 2.9 Albumin/Globulin Ratio 1.3 Lipase 33 Nasal Adenovirus (PCR) Nasal B. parapertussis DNA (PCR) Nasal Coronavir 229E PCR Nasal Coronavir HKU1 PCR Nasal Coronavir NL63 PCR Nasal Coronavir OC43 PCR Nasal Enterovir/Rhinovir PCR Nasal Influenza B PCR Nasal Influenza A PCR Nasal Parainfluen 1 PCR Nasal Parainfluen 2 PCR Nasal Parainfluen 3 PCR Nasal Parainfluen 4 PCR Nasal RSV (PCR) Nasal B.pertussis DNA PCR Nasal C.pneumoniae (PCR) Sorin Human Metapneumo PCR Nasal M.pneumoniae (PCR) Nasal SARS-CoV-2 (PCR) 11/05/21 11/05/21 11/05/21 16:28 17:42 17:44 WBC RBC Hgb Hct MCV MCH MCHC RDW Plt Count MPV Neut # (Auto) Lymph # (Auto) Emmet # (Auto) Eos # (Auto) Baso # (Auto) Absolute Nucleated RBC Nucleated RBC % PT 11.9 INR 1.1 Sodium Potassium Chloride Carbon Dioxide Anion Gap BUN Creatinine Estimated GFR (MDRD) Glucose Calcium Total Bilirubin AST ALT Alkaline Phosphatase Troponin I High Sens B-Natriuretic Peptide 323 H Total Protein Albumin Globulin Albumin/Globulin Ratio Lipase Nasal Adenovirus (PCR) NOT DETECTED Nasal B. parapertussis DNA (PCR) NOT DETECTED Nasal Coronavir 229E PCR NOT DETECTED Nasal Coronavir HKU1 PCR NOT DETECTED Nasal Coronavir NL63 PCR NOT DETECTED Nasal Coronavir OC43 PCR NOT DETECTED Nasal Enterovir/Rhinovir PCR NOT DETECTED Nasal Influenza B PCR NOT DETECTED Nasal Influenza A PCR NOT DETECTED Nasal Parainfluen 1 PCR NOT DETECTED Nasal Parainfluen 2 PCR NOT DETECTED Nasal Parainfluen 3 PCR NOT DETECTED Nasal Parainfluen 4 PCR NOT DETECTED Nasal RSV (PCR) NOT DETECTED Nasal B.pertussis DNA PCR NOT DETECTED Nasal C.pneumoniae (PCR) NOT DETECTED Sorin Human Metapneumo PCR NOT DETECTED Nasal M.pneumoniae (PCR) NOT DETECTED Nasal SARS-CoV-2 (PCR) NOT DETECTED 11/05/21 21:21 WBC RBC Hgb Hct MCV MCH MCHC RDW Plt Count MPV Neut # (Auto) Lymph # (Auto) Emmet # (Auto) Eos # (Auto) Baso # (Auto) Absolute Nucleated RBC Nucleated RBC % PT INR Sodium Potassium Chloride Carbon Dioxide Anion Gap BUN Creatinine Estimated GFR (MDRD) Glucose Calcium Total Bilirubin AST ALT Alkaline Phosphatase Troponin I High Sens 15.7 B-Natriuretic Peptide Total Protein Albumin Globulin Albumin/Globulin Ratio Lipase Nasal Adenovirus (PCR) Nasal B. parapertussis DNA (PCR) Nasal Coronavir 229E PCR Nasal Coronavir HKU1 PCR Nasal Coronavir NL63 PCR Nasal Coronavir OC43 PCR Nasal Enterovir/Rhinovir PCR Nasal Influenza B PCR Nasal Influenza A PCR Nasal Parainfluen 1 PCR Nasal Parainfluen 2 PCR Nasal Parainfluen 3 PCR Nasal Parainfluen 4 PCR Nasal RSV (PCR) Nasal B.pertussis DNA PCR Nasal C.pneumoniae (PCR) Sorin Human Metapneumo PCR Nasal M.pneumoniae (PCR) Nasal SARS-CoV-2 (PCR) - Rads (name of study) cxr Radiology: Final report received (Bilateral infectious or inflammatory airspace disease most prominent in the bases. Possible superimposed edema and atelectasis. Possible small left effusion) CT head Radiology: Final report received (Small volume of acute appearing hemorrhage involving the superior left frontal lobe medially. Has appearance of subarachnoid and parenchymal hemorrhage. This is new compared to the prior CT) CTA head Radiology: Final report received (Persistent linear focus within the left parietal lobe previously noted suspicious for hemorrhage. CT angio demonstrates no definitive aneurysm within this region.) CTA neck Radiology: Final report received (Bilateral stenosis of the internal carotid or arteries bilaterally at 70%) PD MEDICAL DECISION MAKING - ED course Complexity details: reviewed results, re-evaluated patient, considered differential, d/w patient, d/w family ED course: 86-year-old male was brought to the emergency department via EMS when he was found on the ground outside his home asking for help. He is not an active individual and was attempting to weed his front yard on the hottest day of the year. He was confused for EMS and presents here a Glascow of 14 oriented to person only. He however does not have any obvious focal neurodeficits and on presentation his NIHSS was 1 For EMS he was found to have a saturation of 90% and on arrival to the emergency department was placed on 2 L nasal cannula. His screening labs showed no acute actionable abnormality. Chest x-ray suggest some mild infectious etiology in the lower basilar lobes. He does not have any recent cough fever or leukocytosis. However with hx and comorbidities, will treat with levaquin. However he was acutely confused and given amnesia to the events CT of the head was completed. It does show a small left frontal intraparenchymal hemorrhage. This could possibly be a subarachnoid hemorrhage. Because the etiology of events is not clear I have asked for a stroke consult through [facility]. In addition to this given that hypertension with which the patient presents he is administered a dose of hydralazine. My goal systolic blood pressure will be less than 160. CT angio of head and neck is ordered and pending 1814: I have spoken with Dr. Carrillo neurologist on-call at [facility]. 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 Ideally blood pressure control would be less than 140 systolic. She would recommend a CT angio of the head and neck which is pending. Ideally the patient would have MRI imaging completed but unfortunately we are unable to do this because he has a pacemaker in place. She would recommend admission to our hospital for medical management of the stroke. She does recommend avoiding antiplatelet therapy i.e. aspirin/Plavix. Obviously no heparin or anticoagulation. /[facility] have declined to accept the patient in transfer as they are full. The recommend medial management at this time. IF unable to admit or transfer, she requests that we re-consult with neurology after repeat CT head and CTA are completed 1830: I have spoken with our hospitalist who declines the patient in admission as we lack neurology resources and he does not feel the patient is appropriate for [facility]. I have requested our hospitalist service consult to help us manage the patient while here in the emergency department. Unfortunately 100% of the hospitals along the 5 corridor are full and transferring the patient will prove difficult. 2199: Patient is signed out to my nighttime colleague Dr. Pandey. She will follow-up on the repeat CT of the head that is pending for 2299. We continue to look for a bed at an outlying facility that would have appropriate neurology services. Patient remains on the labetalol infusion though nursing staff is continuing to down titrate as we now have blood pressure within goal. I have ordered repeat chest x-ray screening labs and BNP for the a.m. I will return to shift tomorrow to help continue his care. Departure - Departure Disposition: 02 Transfer Acute Care Hosp Clinical Impression: Intraparenchymal hemorrhage of brain NIHSS - Time Time: 16:30 - Level of Consciousness Level of consciousness: (0) Alert, Keenly responsive LOC Questions: (1) Answers one Q correctly LOC Commands: (0) Performs both correctly - Gaze Best Gaze: (0) Normal - Visual Visual: (0) No loss - Facial Palsy Facial Palsy: (0) Normal, symmetrical movement - Motor Arms (both separate) Motor Arm (right): (0) No drift Motor Arm (left): (0) No drift - Motor Legs (both separate) Motor Leg (right): (0) No drift Motor Leg (left): (0) No drift - Limb Ataxia Limb Ataxia: (0) Absent - Sensory Sensory: (0) Normal - Best Language Best Language: (0) No aphasia - Dysarthria Dysarthria: (0) Normal - Extinction and Inattention (formally neg Extinction and inattention: (0) No abnormality - Total Score/Results Total Score/Result: 1
[2021-11-05 16:48] LABS: ALBUMIN 3.9 g/dL (3.2-5.5); ALBUMIN/GLOBULIN RATIO 1.3 (1.0-2.2); BILIRUBIN,TOTAL 1.7 mg/dL (0.2-1.0); CALCIUM 9.6 mg/dL (8.5-10.3); POTASSIUM 4.3 mmol/L (3.5-5.0); TOTAL PROTEIN 6.8 g/dL (6.7-8.2)
--- NOTE | 2021-11-05 16:53 | XRAY Report ---
PROCEDURE: Chest 1 View X-Ray INDICATIONS: Chest Pain TECHNIQUE: One view of the chest was acquired. COMPARISON: None FINDINGS: Surgical changes and devices: Right chest wall pulse generator with dual chamber electrodes leads. Lungs and pleura: Bilateral airspace disease, moderate in severity, most confluent in the bases. The interstitium is prominent. There might be a small left effusion. Mediastinum: Mediastinal contours appear normal. Heart size is normal. Bones and chest wall: No suspicious bony lesions. Overlying soft tissues appear unremarkable. IMPRESSION: Bilateral infectious or inflammatory airspace disease, most prominent at the bases. Possible superimp osed edema and atelectasis. Possible small left effusion. Reviewed by: Ted Nagy MD on 11/05/2021 4:52 PM PDT Approved by: Ted Nagy MD on 11/05/2021 4:52 PM PDT Station ID: [id number]
[2021-11-05] MEDS ORDERED: FUROSEMIDE 40 MG/4 ML VIAL IVP STA (17:06)
--- NOTE | 2021-11-05 17:23 | CT Report ---
PROCEDURE: HEAD WO INDICATIONS: syncope in heat TECHNIQUE: Noncontrast 4.5 mm thick angled axial sections acquired from the foramen magnum to the vertex. For r adiation dose reduction, the following was used: automated exposure control, adjustment of mA and/or kV according to patient size. COMPARISON: 06/05/2021, 05/23/2021, 05/08/2021. FINDINGS: Image quality: Excellent. CSF spaces: Basal cisterns are patent. No extra-axial fluid collections. Ventricles are normal in size and shape. Brain: There is a small volume of subarachnoid/parenchymal hemorrhage seen involving the superior me dial left frontal lobe anteriorly, as seen on series 3 image 25. No midline shift. No intracranial masses. Brock-white matter interface is normal. Skull and face: A left forehead lipoma can be seen, measuring 3.3 cm. Calvarium and visualized facia l bones are intact, without suspicious lesions. Sinuses: Moderate mucosal thickening can be seen involving the maxillary sinuses. Milder mucosal thic kening is seen elsewhere within the paranasal sinuses. No significant abnormal fluid can be seen with in the mastoid air cells. IMPRESSION: There is a small volume of acute appearing hemorrhage involving the superior left fronta l lobe medially. This has the appearance of subarachnoid and parenchymal hemorrhage. This is new comp ared to the prior CT. Incidental note is made of: Left forehead lipoma Paranasal sinus disease Note: Critical finding of acute intracranial hemorrhage discussed by telephone with Lisa Parisi at 4:20 PM [place] time on 11/05/2021. Reviewed by: Denny Saldana MD on 11/05/2021 4:21 PM QUINN Approved by: Denny Saldana MD on 11/05/2021 4:21 PM AKDT Station ID: [id number]
[2021-11-05] MEDS ORDERED: hydrALAZINE INJ 20 MG/ML VIAL IVP STA (17:31)
[2021-11-05 17:57] LABS: INR 1.1 (0.8-1.2); PT - PROTHROMBIN TIME 11.9 secs (9.9-12.6)
[2021-11-05] MEDS ORDERED: LABETALOL 20 MG/4 ML SYRINGE IVP STA ×2 (18:10→18:50)
[2021-11-05 18:53] LABS: B. PARAPERTUSSIS- RESP PCR PAN NOT DETECTED; B. PERTUSSIS- RESP PCR PANEL NOT DETECTED; C. PNEUMONIAE- RESP PCR PANEL NOT DETECTED; CORONAVIRUS 229E-RESP PCR NOT DETECTED; CORONAVIRUS HKU1-RESP PCR NOT DETECTED; CORONAVIRUS NL63-RESP PCR NOT DETECTED; CORONAVIRUS OC43-RESP PCR NOT DETECTED; HUMAN METAPNEUMOVIRUS NOT DETECTED; INFLUENZA A- RESP PCR PANEL NOT DETECTED; INFLUENZA B - RESP PCR PANEL NOT DETECTED; M. PNEUMONIAE- RESP PCR PANEL NOT DETECTED; PARAINFLUENZA VIRUS 1 NOT DETECTED; PARAINFLUENZA VIRUS 2 NOT DETECTED; PARAINFLUENZA VIRUS 3 NOT DETECTED; PARAINFLUENZA VIRUS 4 NOT DETECTED; RHINOVIRUS/ENTEROVIRUS NOT DETECTED; RSV- RESP PCR PANEL NOT DETECTED; SARS-CoV-2 -RESP PCR PANEL NOT DETECTED
[2021-11-05] MEDS ORDERED: amLODIPine 5 MG TABLET PO STA (18:59)
--- NOTE | 2021-11-05 19:16 | CT Report ---
PROCEDURE: ANGIO HEAD W/WO INDICATIONS: IPH; ? aneurysmal event CONTRAST: IV CONTRAST: Optiray 320 ml: 80 PO CONTRAST: *NO PO CONTRAST TECHNIQUE: Precontrast 4.5 mm thick angled axial sections acquired from the foramen magnum to the vertex. Afte r the administration of intravenous contrast, 1 mm thick sections acquired through the [place] is. Postcontrast 4.5 mm thick sections then re-acquired from the foramen magnum to the vertex. 3-di mensional ekiisaj-nhmomyewo-ywcqjyomra (MIP) and/or volume rendering reformats were acquired of the c entral intracranial vasculature. For radiation dose reduction, the following was used: automated ex posure control, adjustment of mA and/or kV according to patient size. COMPARISON: CT head and CTA neck 11/05/2021. FINDINGS: Image quality: Excellent. Anterior circulation: Intracranial internal carotid arteries are normal in size and flow. The flow within the paired anterior cerebral arteries is normal and symmetric. The flow within the middle cer ebral arteries is normal and symmetric. The anterior communicating artery is seen. No aneurysms are seen. Posterior circulation: Visualized portions of the vertebral arteries demonstrate normal caliber, and join to form a normal appearing basilar artery. Flow within the posterior cerebral arteries is norm al and symmetric. No aneurysms are seen. Attention is noted to the area of hyperdensity within the left parietal lobe. No definitive aneurysm is present within this region. The ventricular system and cortical sulci demonstrate atrophy, consistent for patient's stated age. There are areas of hypodensity in the periventricular and subcortical white matter. There is no acut e intra or extra-axial fluid collection. No acute mass lesion or midline shift. There is a linear ar ea of hyperdensity identified in the left parietal lobe on CT head of 11/05/2021 is not fully included within the field of view on angiogram images. The hyperdensity is identified on postcontrast images in its entirety. Brainstem is unremarkable. Globes are symmetrical. Sinuses demonstrate moderate right maxillary sinus mucosal thickening. Osseou s structures are intact. IMPRESSION: Persistent linear focus of hyperdensity within left parietal lobe as previously noted suspicious for hemorrhage. CTA demonstrates no definitive aneurysm within this region. If concern persists, conventi onal angiogram is recommended. Reviewed by: Abby Gallardo MD on 11/05/2021 7:14 PM PDT Approved by: Abby Gallardo MD on 11/05/2021 7:14 PM PDT Station ID: [id number]
[2021-11-05] MEDS ORDERED: MORPHINE 2 MG/ML CARPUJECT IVP STA (19:24)
--- NOTE | 2021-11-05 19:25 | CT Report ---
PROCEDURE: ANGIO NECK W INDICATIONS: left IPH CONTRAST: IV CONTRAST: Optiray 320 ml: 80 PO CONTRAST: *NO PO CONTRAST TECHNIQUE: After the administration of intravenous contrast, 1.5 mm axial sections acquired from the aortic arch to the [place]. Coronal 3-D maximum intensity projection (MIP) and/or volume rendering ref ormats were then performed. For radiation dose reduction, the following was used: automated exposur e control, adjustment of mA and/or kV according to patient size. COMPARISON: CT head and CTA head 11/05/2021 FINDINGS: Image quality: Excellent. The origins of the left and right common and external carotid arteries demonstrate no areas of hemody namically significant stenosis, vascular occlusion or aneurysmal dilation. The internal artery demons trates significant calcifications. There are multifocal areas of short segment stenosis with the grea test stenosis identified approximately 2.2 cm from the origin and stenosis greater than 70%. The righ t internal carotid artery also demonstrates multifocal areas of calcification within the origin and p roximal portions. Areas of stenosis are most notable at the origin of the proximally 70%. Origin of t he left vertebral artery and right vertebral artery demonstrate no areas of hemodynamically significa nt stenosis, vascular occlusion or aneurysmal dilation. 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 Limited, visualized portions of the subclavian vasculature are unremarkable. Emphysematous changes are present within the lungs bilaterally. 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 The estimate of stenosis included in the report of the imaging study was calculated using the NASCET method CLINICAL RECOMMENDATION STATEMENTS: In patients <35 years with an ITN detected on CT, MRI, or extrathyroidal ultrasound, the Committee re commends further evaluation with dedicated thyroid ultrasound if the nodule is "e1 cm and has no susp icious imaging features, and if the patient has normal life expectancy. In patients "e35 years with an ITN detected on CT, MRI, or extrathyroidal ultrasound, the Committee r ecommends further evaluation with dedicated thyroid ultrasound if the nodule is "e1.5 cm and has no s uspicious imaging features, and if the patient has normal life expectancy. (ACR, 2014) Reviewed by: Abby Gallardo MD on 11/05/2021 7:24 PM PDT Approved by: Abby Gallardo MD on 11/05/2021 7:24 PM PDT Station ID: [id number]
[2021-11-05] MEDS ORDERED: LABETALOL VIAL 200 MG in SODIUM CHLORIDE 0.9% 160 ML IV STA ×2 (19:37→20:59)
[2021-11-05] MEDS ORDERED: LABETALOL 5 MG/1 ML 20 ML MDV ONE ×2 (19:55→21:00)
[2021-11-05] MEDS ORDERED: hydrALAZINE INJ 20 MG/ML VIAL IVP SCH (20:00)
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
[2021-11-05] MEDS ORDERED: hydrALAZINE INJ 20 MG/ML VIAL ONE (20:30)
[2021-11-05] MEDS: hydrALAZINE INJ 20 MG/ML VIAL IVP SCH (21:38)
[2021-11-05] MEDS ORDERED: AZITHROMYCIN INJ 500 MG in SODIUM CHLORIDE 0.9% 250 ML IV STA (21:38)
[2021-11-05] MEDS ORDERED: levoFLOXacin 750 MG/150 ML 750 MG/150 ML BAG IV STA (21:41)
--- NOTE | 2021-11-05 22:29 | XRAY Report ---
PROCEDURE: Chest 1 View X-Ray INDICATIONS: Chest pain TECHNIQUE: One view of the chest was acquired. COMPARISON: FINDINGS: Surgical changes and devices: Right chest wall dual-lead cardiac pacing device with leads in appropr iate position. Lungs and pleura: No pleural effusions or pneumothorax. Diffusely increased interstitial and airspac e opacities in both lungs. Mediastinum: Mediastinal contours appear normal. Heart size is mildly enlarged. Bones and chest wall: No suspicious bony lesions. Overlying soft tissues appear unremarkable. IMPRESSION: Cardiomegaly with findings suggestive of moderate cardiogenic pulmonary edema. Superimposed infection cannot be excluded. Reviewed by: Levon Contreras MD on 11/05/2021 10:28 PM PDT Approved by: Levon Contreras MD on 11/05/2021 10:28 PM PDT Station ID: [id number]
--- NOTE | 2021-11-05 23:44 | CT Report ---
PROCEDURE: HEAD WO INDICATIONS: f/u IPH TECHNIQUE: Noncontrast 4.5 mm thick angled axial sections acquired from the foramen magnum to the vertex. For r adiation dose reduction, the following was used: automated exposure control, adjustment of mA and/or kV according to patient size. COMPARISON: 11/05/2021 FINDINGS: Small right frontal contusion versus smile focus of tiny focus of subarachnoid hemorrhage is unchange d (series 3 image 21). anterior left frontal lobe subarachnoid and possibly tiny parenchymal contusions have decreased in co nspicuity but are otherwise not significantly changed (series 3 images 26 and 27). Suspected subarachnoid hemorrhage in the lateral aspect of the left frontal is significantly less con spicuous, consistent with redistribution of subarachnoid hemorrhage seen previously (series 3 image 1 0). Posterior left temporal lobe subarachnoid hemorrhage with possible adjacent cortical contusion is unc hanged (series 3 is pending. The ventricular system is patent and unchanged in caliber from the prior study. Basilar cisterns are patent. There is no decreased shields-white matter differentiation to suggest an acute infarct. Global c erebral volume loss and chronic microvascular ischemic changes are similar. No acute orbital process. Findings in the paranasal sinuses are similar. IMPRESSION: Overall no significant change in multifocal tiny subarachnoid hemorrhages, some associated with possi ble tiny adjacent cortical contusions. Reviewed by: Levon Contreras MD on 11/05/2021 11:42 PM PDT Approved by: Levon Contreras MD on 11/05/2021 11:42 PM PDT Station ID: [id number]
[2021-11-06] MEDS ORDERED: LABETALOL VIAL 200 MG in SODIUM CHLORIDE 0.9% 160 ML IV STA ×2 (00:46→04:28)
[2021-11-06] MEDS ORDERED: LABETALOL 5 MG/1 ML 20 ML MDV ONE ×2 (01:18→06:31)
[2021-11-06] MEDS: hydrALAZINE INJ 20 MG/ML VIAL IVP SCH ×2 (03:03→09:04)
[2021-11-06] MEDS ORDERED: HALOPERIDOL 5 MG/ML VIAL IM STA ×2 (03:35→06:15)
[2021-11-06] MEDS ORDERED: diphenhydrAMINE INJ 50 MG/ML VIAL IM STA (03:35)
[2021-11-06] MEDS ORDERED: LORazepam 2 MG/ML VIAL IM STA ×2 (04:12→06:15)
[2021-11-06] MEDS ORDERED: LABETALOL VIAL 200 MG in SODIUM CHLORIDE 0.9% 160 ML IV SCH (07:00)
--- NOTE | 2021-11-06 07:55 | CT Report ---
PROCEDURE: HEAD WO INDICATIONS: WORSENING MENTAL STATUS, SUBARACHNOID BLEED TECHNIQUE: Noncontrast 4.5 mm thick angled axial sections acquired from the foramen magnum to the vertex. For r adiation dose reduction, the following was used: automated exposure control, adjustment of mA and/or kV according to patient size. COMPARISON: 11/05/2021, 06/05/2021, 05/23/2021, and 05/08/2021 FINDINGS: Image quality: Study degraded by moderate patient motion artifact. CSF spaces: Basal cisterns are patent. No extra-axial fluid collections. Ventricles are normal in size and shape. Brain: No midline shift. No intracranial masses. Redemonstration of multiple tiny subarachnoid hemo rrhages. Decreased conspicuity of right frontal hemorrhage seen on image 26/series 5. Stable focus in volving the medial margin of the left frontal lobe is seen on image 30/series 5. Stable lateral left frontal lobe hemorrhage seen on image 30/series 5. Stable to slight increased conspicuity of far late ral posterior left parietal lobe hemorrhage seen on image 3/series 5. Stable appearance of suspected subarachnoid hemorrhage in the lateral aspect of the posterior left temporal lobe (image 18/series 5) . No mass effect. Brock-white matter interface is normal. There cerebral volume loss for age with resu ltant ventricular and sulcal prominence. There are periventricular and deep white matter chronic smal l vessel ischemic changes. Atherosclerotic calcifications are noted in the intracranial segments of t he bilateral internal carotid arteries. Skull and face: Calvarium and visualized facial bones are intact, without suspicious lesions. 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 Sinuses: Mucosal thickening and opacification of the bilateral maxillary sinuses more pronounced on t he right. Sinuses and mastoids are clear. IMPRESSION: 1. Redemonstration of multiple small foci of subarachnoid hemorrhage are not significantly changed. N o new areas of hemorrhage identified. No evidence for mass effect. 2. Bilateral maxillary sinus disease. 3. Age-related senescent changes and sequela of chronic small vessel ischemic disease. Reviewed by: Lit Martin MD on 11/06/2021 7:54 AM PDT Approved by: Lit Martin MD on 11/06/2021 7:54 AM PDT Station ID: [id number]
[2021-11-06 08:54] LABS: CALCIUM 9.2 mg/dL (8.5-10.3); CREATININE 1.1 mg/dL (0.6-1.2); POTASSIUM 3.5 mmol/L (3.5-5.0)
[2021-11-06] MEDS ORDERED: TAMSULOSIN 0.4 MG CAPSULE PO SCH (09:00)
[2021-11-06 10:08] LABS: BASOPHILS % (AUTO) 0.3 %; EOSINOPHILS # (AUTO) 0.1 10^3/uL (0.0-0.7); EOSINOPHILS % (AUTO) 1.1 %; HCT - HEMATOCRIT 38.4 % (42.0-52.0); HGB - HEMOGLOBIN 12.7 g/dL (14.0-18.0); LYMPHOCYTES # (AUTO) 1.2 10^3/uL (1.5-3.5); MEAN CORPUSCULAR HEMOGLOBIN 28.9 pg (27.0-31.0); MEAN CORPUSCULAR HGB CONC 33.1 g/dL (32.0-36.0); MEAN CORPUSCULAR VOLUME 87.5 fL (80.0-94.0); MEAN PLATELET VOLUME 10.7 fL (7.4-11.4); MONOCYTES # (AUTO) 0.8 10^3/uL (0.0-1.0); MONOCYTES % (AUTO) 7.9 %; NEUTROPHILS # (AUTO) 7.9 10^3/uL (1.5-6.6); NEUTROPHILS % (AUTO) 78.4 %; PLT - PLATELET COUNT 145 10^3/uL (130-450); RED BLOOD COUNT 4.39 10^6/uL (4.70-6.10); RED CELL DISTRIBUTION WIDTH 13.1 % (12.0-15.0)
--- NOTE | 2021-11-06 11:32 | ED Physician Documentation ---
ED Addendum - Addendum Addendum: 11/06/21 11:31 Patient continues to board in the emergency department. We continue to work with [facility] to find an appropriate medical facility with neurology services for further management of his intraparenchymal hemorrhage. His blood pressure has proven labile. He has intermittently been on and off the labetalol drip. Per conversation with neurology yesterday the goal blood pressure is about 140 systolic. I have reinstituted his daily Coreg and Lasix as he also has a history of congestive heart failure. We will continue him on the Levaquin for the suspected pneumonia seen on chest x-ray yesterday as well as the intermittent mild hypoxia with oxygen saturations to about 90% requiring 2 L nasal cannula. On exam at the bedside he is lethargic but responds easily with stimulation. He continues to have no obvious focal neurodeficits. PT and OT are evaluating him. 11/06/21 13:[address] with [address] Aylin Dela Cruz hospitalist at [facility]. The patient has been accepted in transfer to their 7 W. neuro unit. A bed is available. We will arrange ALS transport. I have notified the of impending transfer. Appropriate [facility] paperwork completed.
[2021-11-06] MEDS ORDERED: POTASSIUM CHLORIDE 20 MEQ TABLET PO SCH (12:00)
[2021-11-06] MEDS ORDERED: carvediloL 3.125 MG TABLET PO SCH (12:00)
[2021-11-06] MEDS ORDERED: ATORVASTATIN 40 MG TABLET PO SCH (12:00)
[2021-11-06] MEDS ORDERED: FUROSEMIDE 20 MG TABLET PO SCH (12:00)
[2021-11-06 15:09] VITALS: BP 151/69
[2021-11-06] MEDS ORDERED: carvediloL 12.5 MG TABLET PO SCH (21:00)
== END 2021-11-06 15:10 | disposition short-term general hospital (02) ==
LOC: ED 16:12
DX: I61.9 Nontraumatic intracerebral hemorrhage, unspecified (principal); R29.701 NIHSS score 1; I10 Essential (primary) hypertension; Z87.891 Personal history of nicotine dependence; Z95.0 Presence of cardiac pacemaker; Z20.822 Contact with and (suspected) exposure to COVID-19
CPT/HCPCS: 36415; 70450; 70496; 70498; 71045; 80048; 80053; 83690; 83880; 84484; 85025; 85610; 87633; 93005; 96365; 96366; 96367; 96372; 96375; 96376; 99285; A9270; J1200; J2060; Q9967